=== PATIENT | male | born 1960 | race Hispanic/Latino ===

== ENCOUNTER → 2022-09-15 | Outpatient (CLI) | payer OTHER ==
[~2022-09-15] MED LIST: ATOR10TA69 PO; BUPR-49 PO; CARV6.25 PO; DULO30CA52 PO; ESOM40CA PO; HYDR-4060 PO; HYDROXYZINE PO; LOSA1TAB37 PO; LUBI24CA2 PO; ZIPR40CA2 PO; [UNRECOGNIZED DRUG - CODE] PO
== END | disposition home or self-care (01) ==
LOC: RAH 14:11
PROVIDERS: ATTEND Internal Medicine Cardiovascular Disease
DX: Z13.6 Encounter for screening for cardiovascular disorders (principal)
CPT/HCPCS: 75571